=== PATIENT | male | born 2000 | race Caucasian/White ===

== ENCOUNTER 2023-09-11 00:49 | Emergency (ER) | payer MEDICAID ==
[~2023-09-11] VITALS: Ht 170.2 cm; Wt 104.1 kg
[2023-09-11 01:26] VITALS: BP 157/97; O2SAT 100
[2023-09-11] MEDS ORDERED: LORAZEPAM 1MG TABLET PO ONE (02:45)
[2023-09-11] MEDS ORDERED: LORA-250 MT (03:33)
[2023-09-11 03:41] VITALS: PULSE 131; RESP 18; TEMP 98
== END 2023-09-11 03:44 | disposition home or self-care (01) ==
LOC: ER 01:54
DX: F19.10 Other psychoactive substance abuse, uncomplicated (principal); F12.10 Cannabis abuse, uncomplicated; Z88.0 Allergy status to penicillin
CPT/HCPCS: 93005; 99283